=== PATIENT | female | born 1975 | race Two or more races ===

== ENCOUNTER 2018-11-19 12:47 | Inpatient (IN) | payer OTHER ==
[~2018-11-19] VITALS: Ht 165.1 cm; Wt 102.5 kg
[2018-11-19] MEDS ORDERED: LOSARTAN-HCTZ1 EACH (13:32)
[2018-11-19] MEDS ORDERED: OMEPRAZOLE10 MG (13:32)
[2018-11-19] MEDS ORDERED: PROPRANOLOL HCL10 MG (13:32)
[2018-11-19] MEDS ORDERED: BENTYL10 MG/1 ML (13:32)
[2018-11-19] MEDS ORDERED: CIPRO100 MG (13:33)
== END 2018-11-28 18:06 | disposition home or self-care (01) | DRG 330 ==
LOC: O/R 11-21 10:30 → SURH 11-26 06:08 → O/R 11-26 09:00 → SURH 11-26 16:23
PROVIDERS: ADMIT Colon & Rectal Surgery
PROC: 0DJD8ZZ Inspection of Lower Intestinal Tract, Via Natural or Artificial Opening Endoscopic (ICD-10-PCS; 2018-11-26)
PROC: 3E0F7GC Introduction of Other Therapeutic Substance into Respiratory Tract, Via Natural or Artificial Opening (ICD-10-PCS; 2018-11-26)
PROC: 0DTN4ZZ Resection of Sigmoid Colon, Percutaneous Endoscopic Approach (ICD-10-PCS; principal; 2018-11-26 09:00)
DX: K57.32 Diverticulitis of large intestine without perforation or abscess without bleeding (principal); I47.1 Supraventricular tachycardia; J45.41 Moderate persistent asthma with (acute) exacerbation; E66.09 Other obesity due to excess calories

== ENCOUNTER 2019-12-11 08:50 | Day surgery (SDC) | payer OTHER ==
[~2019-12-11 08:50] MED LIST: BENTYL10 MG/1 ML; CIPRO100 MG; LOSARTAN-HCTZ1 EACH; OMEPRAZOLE10 MG; PROPRANOLOL HCL10 MG
== END 2019-12-11 13:40 | disposition home or self-care (01) ==
LOC: AMB-ENDOS 08:50
PROVIDERS: ATTEND Colon & Rectal Surgery
DX: K57.32 Diverticulitis of large intestine without perforation or abscess without bleeding (principal); K64.0 First degree hemorrhoids; Z20.828 Contact with and (suspected) exposure to other viral communicable diseases